=== PATIENT | female | born 2000 | race Two or more races ===

== ENCOUNTER 2019-01-15 16:22 | Outpatient (CLI) | payer OTHER ==
[2019-01-15] MEDS ORDERED: IRON325 MG PO (16:46)
[2019-01-15] MEDS ORDERED: PRENATAL TABLE1 EAC1 PO (16:46)
[2019-01-15] MEDS ORDERED: FOLIC ACID20 MG PO (16:46)
== END 2019-01-16 11:46 | disposition home or self-care (01) ==
LOC: OBS/DEL 16:22
DX: O60.03 Preterm labor without delivery, third trimester (principal)

== ENCOUNTER 2019-03-08 13:30 | Inpatient (IN) | payer OTHER ==
[~2019-03-08] VITALS: Ht 167.6 cm; Wt 59.4 kg
[~2019-03-08 13:30] MED LIST: FOLIC ACID20 MG PO; IRON325 MG PO; PRENATAL TABLE1 EAC1 PO
== END 2019-03-24 10:59 | disposition home or self-care (01) | DRG 807 ==
LOC: O/R 13:30 → OB/GYN 03-22 01:09 → LDR 03-22 01:09 → OB/GYN 03-22 04:10
PROVIDERS: ADMIT Obstetrics & Gynecology
PROC: 10E0XZZ Delivery of Products of Conception, External Approach (ICD-10-PCS; principal; 2019-03-22)
PROC: 4A1HXCZ Monitoring of Products of Conception, Cardiac Rate, External Approach (ICD-10-PCS; 2019-03-22)
DX: O80 Encounter for full-term uncomplicated delivery (principal); Z37.0 Single live birth; Z3A.39 39 weeks gestation of pregnancy

== ENCOUNTER 2020-05-30 11:15 | Inpatient (IN) | payer OTHER ==
[~2020-05-30] VITALS: Ht 157.5 cm; Wt 61.2 kg
== END 2020-06-01 13:59 | disposition home or self-care (01) | DRG 807 ==
LOC: LDR 11:15 → OB/GYN 05-31 16:02
PROVIDERS: ADMIT Obstetrics & Gynecology; ATTEND Obstetrics & Gynecology
PROC: 10E0XZZ Delivery of Products of Conception, External Approach (ICD-10-PCS; principal; 2020-05-30)
PROC: 4A1HXFZ Monitoring of Products of Conception, Cardiac Rhythm, External Approach (ICD-10-PCS; 2020-05-30)
DX: O42.02 Full-term premature rupture of membranes, onset of labor within 24 hours of rupture (principal); Z37.0 Single live birth; Z3A.37 37 weeks gestation of pregnancy; Z20.822 Contact with and (suspected) exposure to COVID-19